=== PATIENT | female | born 1940 | race Caucasian/White ===

== ENCOUNTER → 2022-11-23 | Outpatient (CLI) | payer MEDICARE, SELFPAY ==
--- NOTE | 2022-11-23 14:01 | VDLE_ITS ---
Reason For Study: Swelling RIGHT LEFT CFV is compressible, spontaneous, phasic, CFV is compressible, spontaneous, phasic, competent and demonstrates normal competent, and demonstrates normal augmentation. augmentation. FV is compressible, spontaneous, phasic, FV is compressible, spontaneous, phasic, competent and demonstrates normal competent and demonstrates normal augmentation. augmentation. POP V is compressible, spontaneous, phasic, POP V is compressible, phasic, and competent and demonstrates normal INCOMPETENT for greater than 1.0 second. augmentation. T/P Trunk is compressible. T/P Trunk is compressible. PTV is compressible. PTV is compressible. LT PerV is compressible. RT PerV is compressible. Nonvascularized structure noted in the left SFJ is competent and measures 0.58 x 0.61 popliteal fossa that measures 1.49 x 2.94 x cm. 5.88 cm. GSV proximal thigh measures 0.34 x 0.34 cm. SFJ is competent and measures 0.80 x 0.78 cm. GSV at knee measures 0.15 x 0.16 cm. GSV proximal thigh measures 0.27 x 0.25 cm. GSV is competent throughout. GSV above knee is competent. ASV proximal calf is INCOMPETENT for greater GSV at knee measures 0.08 x 0.07 cm. than 0.5 seconds and measures 0.17 x 0.18 GSV below knee is INCOMPETENT for greater cm. than 0.5 seconds. SSV proximal calf is INCOMPETENT for greater SSV proximal calf is competent and measures than 0.5 seconds and measures 0.15 x 0.153 0.16 x 0.17 cm. cm. Procedure This is a venous duplex using B-mode, color flow and spectral Doppler. Exam performed in department. VL/Venous Duplex US - August Extrem Interpretation Summary Deep veins of the bilateral lower extremities are patent and compressible segme ntally. There is no evidence of bilateral lower extremity deep vein thrombosis. The bilateral great saphenous veins appear patent and compressible segmentally. Positive for reflux in the right accessory saphenous and small saphenous veins. Positive for reflux in the left popliteal vein and great saphenous vein below t he knee. Ordering Physician: Harrison Priest Referring Physician: Adrianna Akbar Performed By: Colleen Savage RVT
== END | disposition home or self-care (01) ==
PROVIDERS: PCP Physician Assistant; Referring Provider Surgery Trauma Surgery; Visit Provider Surgery Trauma Surgery
DX: R60.0 Localized edema (principal); I82.409 Acute embolism and thrombosis of unspecified deep veins of unspecified lower extremity
CPT/HCPCS: 93970

== ENCOUNTER → 2023-05-24 | Outpatient (CLI) | payer MEDICARE, SELFPAY ==
[2023-05-24 08:22] LABS: Erythrocyte Sedimentation Rate 14 mm/hr (0-30)
[2023-05-24 08:25] LABS: Homocysteine 8.6 umol/L (3.2-10.7)
[2023-05-27 16:09] LABS: ANTINUCLEAR ANTIBODIES DIRECT Negative (Negative)
[2023-05-30 13:07] LABS: Anti-Cardiolipin Ab, IgA, Qn < 9 APL U/mL (0-11); Anti-Cardiolipin Ab, IgG, Qn 38 GPL U/mL (0-14); Anti-Cardiolipin Ab, IgM, Qn 10 MPL U/mL (0-12); Anti-Thrombin 3 AG, Immunol 117 % (72-124); Antithrombin 3 Function 104 % (75-135); Complement C3 126 mg/dL (82-167); Complement CH50 > 60 U/mL (>41); Dilute Prothrombin Time (dPT) 36.7 sec (0.0-47.6); Dilute Russell Viper Venom 43.2 sec (0.0-47.0); Interpretation Comment: (.); PTT-LA 40.8 sec (0.0-43.5); Protein C, Functional 129 % (73-180); Protein S, Free 113 % (61-136); Protein S, Funtional 63 % (63-140); Protein S, Total 107 % (60-150); dPT Confirm Ratio 0.95 Ratio (0.00-1.34)
== END | disposition home or self-care (01) ==
PROVIDERS: PCP Physician Assistant; Referring Provider Physician Assistant; Visit Provider Physician Assistant
DX: I26.99 Other pulmonary embolism without acute cor pulmonale (principal)
CPT/HCPCS: 36415; 81240; 81241; 83090; 85300; 85301; 85303; 85305; 85306; 85652; 86038; 86147; 86160; 86162; 86225; 86235

== ENCOUNTER 2023-06-25 13:53 | Outpatient (CLI) | payer MEDICARE, SELFPAY ==
[2023-06-27 11:09] LABS: Cancer Antigen 125 9.4 U/mL (0.0-38.1); Carbohydrate AG 19-9 9 U/mL (0-35); Carcinoembryonic Antigen 2139 1.7 ng/mL (0.0-4.7)
== END 2023-06-25 23:59 | disposition home or self-care (01) ==
LOC: WOBLAB 13:56
PROVIDERS: PCP Physician Assistant; Visit Provider Obstetrics & Gynecology
DX: N83.201 Unspecified ovarian cyst, right side (principal); N83.202 Unspecified ovarian cyst, left side
CPT/HCPCS: 36415; 82378; 86301; 86304

== ENCOUNTER → 2023-08-24 | Outpatient (CLI) | payer MEDICARE, SELFPAY ==
[2023-08-26 12:08] LABS: Anti-Cardiolipin Ab, IgA, Qn < 9 APL U/mL (0-11); Anti-Cardiolipin Ab, IgG, Qn 15 GPL U/mL (0-14); Anti-Cardiolipin Ab, IgM, Qn < 9 MPL U/mL (0-12)
== END | disposition home or self-care (01) ==
PROVIDERS: PCP Physician Assistant; Visit Provider Physician Assistant
DX: I26.99 Other pulmonary embolism without acute cor pulmonale (principal)
CPT/HCPCS: 36415; 86147